=== PATIENT | female | born 1955 | race Caucasian/White ===

== ENCOUNTER → 2022-08-16 06:59 | Outpatient (CLI) | payer MEDICARE, OTHER, SELFPAY ==
--- NOTE | ~2022-08-16 | XR_ITS ---
Right Knee Technique: AP, lateral, and sunrise views were obtained. Clinical History: Pain Findings: No fracture or dislocation is seen. Osseous alignment is anatomic. There is mild degenerati ve change of the lateral compartment with probable lateral compartment narrowing. There is minimal sp urring at the medial joint line and patella. Soft tissues are unremarkable. No joint effusion is seen . 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 Minimal degenerative change of the medial and patellofemoral compartments. Reviewed, dictated and finalized at location M. [employer]PECTING OPERATOR Impression: Mild to moderate lateral compartment degenerative change. Minimal degenerative change of the medial and patellofemoral compartments.
== END ==
PROVIDERS: PCP Family Medicine; Visit Provider Nurse Practitioner Family
DX: M25.561 Pain in right knee (principal)
CPT/HCPCS: 73564